=== PATIENT | female | born 1960 | race Caucasian/White ===

== ENCOUNTER → 2016-12-14 | Outpatient (CLI) | payer OTHER ==
[2016-12-14 19:38] LABS: URIC ACID 7.1 mg/dL (2.6-7.2)
== END ==
LOC: LAB.WCP 08:00
PROVIDERS: ATTEND Family Medicine
DX: M06.4 Inflammatory polyarthropathy (principal)
CPT/HCPCS: 36415; 84550; 85651; 86140; 86430

== ENCOUNTER 2017-05-14 09:59 | Outpatient (CLI) | payer MEDICAID ==
--- NOTE | 2017-05-15 16:07 | Mammography Report ---
DIGITAL SCREENING MAMMOGRAM: 05/14/2017 CLINICAL INDICATION: A 56-year-old with history of bilateral implants, for screening. TECHNIQUE: Routine CC and MLO projections were obtained of the breasts. Bilateral implant-displaced views. COMPARISON: Report of previous mammogram of 07/10/2004. Previous films have been purged. FINDINGS: The breasts demonstrate scattered fibroglandular densities bilaterally. Bilateral subglandular saline implants are present. No suspicious masses, clustered microcalcifications, or regions of architectural distortion are identified. IMPRESSION: BENIGN FINDINGS. RECOMMENDATION: ROUTINE ANNUAL SCREENING UNLESS OTHERWISE CLINICALLY INDICATED. BIRADS CATEGORY 2-BENIGN FINDINGS. STANDARD QUALIFYING STATEMENTS: 1. This examination was reviewed with the aid of Computer-Aided Detection (CAD). 2. A negative or benign imaging report should not delay biopsy if clinically suspicious findings are present. Consider surgical consultation if warranted. More than 5% of cancers are not identified by imaging. 3. Dense breasts may obscure an underlying neoplasm. TD: 05/15/2017 16:06
== END 2017-05-14 10:00 | disposition home or self-care (01) ==
LOC: DI.N 09:59
PROVIDERS: ATTEND Family Medicine
DX: Z12.31 Encounter for screening mammogram for malignant neoplasm of breast (principal); Z98.82 Breast implant status
CPT/HCPCS: 77067

== ENCOUNTER 2017-05-21 17:17 | Outpatient (CLI) | payer MEDICAID | END 2017-05-21 17:18 | disposition home or self-care (01) | LOC: LAB.R 17:17 | PROVIDERS: ATTEND Obstetrics & Gynecology | DX: N89.8 Other specified noninflammatory disorders of vagina (principal) | CPT/HCPCS: 87480; 87510; 87660 ==

== ENCOUNTER 2017-07-26 11:42 | Outpatient (CLI) | payer MEDICAID | END 2017-07-26 11:43 | disposition home or self-care (01) | LOC: LAB 11:42 | PROVIDERS: ATTEND Orthopaedic Surgery | DX: Z01.812 Encounter for preprocedural laboratory examination (principal); M18.12 Unilateral primary osteoarthritis of first carpometacarpal joint, left hand | CPT/HCPCS: 87640 ==

== ENCOUNTER 2017-07-30 06:15 | Day surgery (SDC) | payer MEDICAID ==
[2017-07-30] MEDS ORDERED: ACETAMINOPHEN 1,000 MG/100 ML 100 ML IV ONE (06:34)
[2017-07-30] MEDS ORDERED: CLINDAMYCIN 600 MG/50 ML 50 ML IV ONE (06:35)
[2017-07-30] MEDS ORDERED: LACTATED RINGERS 1,000 ML IV ONE ×2 (06:54→08:27)
[2017-07-30] MEDS ORDERED: FAMOTIDINE 20 MG/50 ML 50 ML IV ONE (07:25)
[2017-07-30] MEDS ORDERED: BUPIVACAINE 0.25% PF 30 ML VIAL ONE (07:33)
[2017-07-30] MEDS ORDERED: BUPIVACAINE 0.25%-EPI 1:200000 PF 30 ML VIAL ONE (07:46)
[2017-07-30] MEDS ORDERED: BUPIVACAINE 0.25%-EPI 1:200000 PF 30 ML VIAL SUBQ ONE ×2 (08:16)
[2017-07-30] MEDS ORDERED: LIDOCAINE-MPF 2% 5 ML VIAL IM ONE (08:40)
[2017-07-30] MEDS ORDERED: MIDAZOLAM 2 MG/2 ML VIAL IVP ONE (08:40)
[2017-07-30] MEDS ORDERED: fentaNYL 100 MCG/2 ML VIAL IVP ONE (08:40)
[2017-07-30] MEDS ORDERED: PROPOFOL 200 MG/20 ML VIAL IVP ONE (08:40)
[2017-07-30] MEDS ORDERED: DEXAMETHASONE 4 MG/ML VIAL IVP ONE (08:40)
[2017-07-30] MEDS ORDERED: ONDANSETRON 4 MG/2 ML VIAL IVP ONE (08:40)
[2017-07-30 10:38] VITALS: BP 119/54
--- NOTE | 2017-07-30 16:10 | OPERATIVE REPORT ---
DATE OF SERVICE: 07/30/2017 Physician: Chino García MD PREOPERATIVE DIAGNOSIS: Right thumb first carpometacarpal joint arthritis with loose bodies. POSTOPERATIVE DIAGNOSIS: Right thumb first carpometacarpal joint arthritis with loose bodies. PROCEDURE PERFORMED: Right thumb first carpometacarpal joint arthroplasty with trapezium excision. SURGEON: Chino García MD ANESTHESIA: General. INDICATIONS FOR SURGERY: Patient is a 56-year-old female with progressive right thumb first carpometacarpal joint arthritis who has constant pain, grinding and subluxation and enlargement of the joint. She desires care for this and has failed nonoperative treatment. FINDINGS AT SURGERY: The patient's joint was indeed laterally subluxated and the base of the first metacarpal was devoid of cartilage on 50% of its articular surface. There were 3 loose bodies, 1 large and 2 small in the joint area. DESCRIPTION OF OPERATIVE PROCEDURE: The patient was taken to the operating room and the patient desired general anesthesia and her surgical site had been marked. She was given general anesthesia and then her right upper extremity was sterilely prepped and draped in standard fashion. Tourniquet was placed on the upper arm. Surgical site was then infiltrated with 0.25% Marcaine with epinephrine. Once the sterile prep and drape were completed, the surgical pen was used to serina out the curved incision over the base of the thumb and surgery progressed with incision through skin only and a careful dissection down spreading through extensor tendons to the base of the first metacarpal. Retractors were positioned and incision was made into the capsule in a longitudinal fashion extending from the base of the first metacarpal down almost to the radial styloid, preserving the dorsal leash of vessels and exposing the first carpometacarpal joint articulation. Soft tissue was reflected from this articulation and from the carpus to expose the trapezium, which was sectioned in 4 pieces and removed, preserving the capsule. The base of the thumb was drilled through from the dorsal surface of the first metacarpal into the central area of the base of the bone and this was sufficient in size to receive the flexor carpi radialis tendon, which was harvested proximal to the wrist, whipstitched and drawn through this hole in the bone and once passed through the bone was reduced into proper alignment and pentecostalism of length and a 0.045 K-wire was driven from the first metacarpal into the carpus to support this. The tendon was then placed under traction and anchoring sutures were placed into the base of the metacarpal and tendon as well as a bone wedge placed into the remaining gap in the hole that had been drilled. This essentially wedge that the tendon in place. The area was flushed of bone debris and inspected. The pin was bent and cut outside the skin and sterile dressings were applied, after which a meticulous closure was made with the tourniquet deflated. There was some minor venous bleeding controlled with cautery. The capsule was closed with Ti-Cron suture, interrupted, the subcutaneous tissue with Vicryl suture and the skin with Monocryl running 4-0. A repeat infiltration was performed into the surgery site, and after this, the sterile dressings were applied and the patient was placed into a thumb spica cast, which was immediately univalved after hardening. The patient was taken to recovery room in stable condition. ESTIMATED BLOOD LOSS: Minimal. COMPLICATIONS: None. COUNTS: Sponge, needle counts were correct. TD: 07/30/2017 10:33
== END 2017-07-30 06:16 | disposition home or self-care (01) ==
LOC: SDS 06:15
PROVIDERS: ATTEND Orthopaedic Surgery
PROC: 0RUS07Z Supplement Right Carpometacarpal Joint with Autologous Tissue Substitute, Open Approach (ICD-10-PCS; principal; 2017-07-30 07:30)
DX: M18.11 Unilateral primary osteoarthritis of first carpometacarpal joint, right hand (principal); M24.08 Loose body, other site; Z87.891 Personal history of nicotine dependence
CPT/HCPCS: 25447; 26480; C1713; J0131; J7120

== ENCOUNTER 2017-09-04 19:17 | Emergency (ER) | payer MEDICAID ==
[2017-09-04 19:50] VITALS: BP 128/70
--- NOTE | 2017-09-04 20:43 | ED Physician Documentation ---
History of Present Illness - Stated complaint Stated Complaint: LT HAND KNUCKLE LAC - Chief complaint Chief Complaint: Laceration - History obtained from History obtained from: Patient - Additonal information Additional information: 56-year-old female presents the emergency department for evaluation of a laceration which occurred just prior to arrival.No reports of injury to her head or torso. Bleeding currently is under control. The patient reports an up- to-date tetanus shot.Symptoms are described as mild. No other associated symptoms Review of Systems Constitutional: denies: Fatigue Cardiac: denies: Palpitations Skin: reports: Laceration (s) Musculoskeletal: denies: Extremity pain, Joint pain Neurologic: denies: Syncope Immunocompromised: denies: Chemotherapy PD PAST MEDICAL HISTORY - Past Medical History Past Medical History: Yes Cardiovascular: Hypertension, High cholesterol Respiratory: Asthma Endocrine/Autoimmune: Type 2 diabetes GI: GERD, Hiatal hernia, Other B2B SALES REPRESENTATIVE: None : Frequency Psych: Anxiety Musculoskeletal: Osteoarthritis Derm: None - Past Surgical History Past Surgical History: Yes General: Gastric surgery /B2B SALES REPRESENTATIVE: Hysterectomy, Other - Present Medications Home Medications: Ambulatory Orders Medication Instructions Recorded Confirmed Ascorbic Acid [Vitamin C] 1,000 mg PO DAILY 06/11/17 07/26/17 Biotin 10,000 units PO DAILY 06/11/17 07/26/17 Calcium Carbonate [Calcium] 600 mg PO DAILY 06/11/17 07/26/17 Cholecalciferol (Vitamin D3) 1,000 units PO DAILY 06/11/17 07/26/17 [Vitamin D3] Estradiol 0.5 mg PO DAILY 06/11/17 07/30/17 Fluticasone [Flonase] 1 sprays MARTA BID PRN 06/11/17 07/30/17 Glucosamine Sulfate Dipot Chlr 1,000 mg PO DAILY 06/11/17 07/30/17 [Glucosamine Sulfate] L-Lysine 1,000 mg PO DAILY 06/11/17 07/30/17 Lactobacillus Acidophilus/Fos 1 cap PO DAILY 06/11/17 07/30/17 [Acidophilus Probiotic Tablet] Lisinopril/Hydrochlorothiazide 10 - 12.5 mg PO DAILY 06/11/17 07/30/17 [Lisinopril-Hctz 10-12.5 mg Tab] [place]-3/Dha/Epa/Fish Oil [Fish Oil 1 cap PO DAILY 06/11/17 07/30/17 1,000 mg Softgel] Omeprazole 3 - 4 each PO ONCE PRN 06/11/17 07/30/17 Potassium Gluconate 1 tab PO DAILY 06/11/17 07/30/17 Sertraline [Zoloft] 25 mg PO DAILY 06/11/17 07/30/17 Sertraline [Zoloft] 50 mg PO DAILY 06/11/17 07/30/17 Trazodone HCl 100 mg PO DAILY 06/11/17 07/30/17 Valacyclovir HCl [Valacyclovir] 500 mg PO DAILY PRN 06/11/17 07/30/17 Albuterol Sulf [Ventolin Hfa 1 - 2 puffs INH Q4HR PRN 07/26/17 07/30/17 Inhaler] - Allergies Allergies/Adverse Reactions: Allergies Allergy/AdvReac Type Severity Reaction Status Date / Time cefazolin sodium * Allergy Anaphylaxis Verified 09/04/17 19:43 [From [facility]] latex Allergy Rash Verified 09/04/17 19:43 NSAIDS (Non-Steroidal AdvReac GI upset Verified 09/04/17 19:43 Anti-Inflamma Opioids-Meperidine and AdvReac Itching Verified 09/04/17 19:43 Related - Social History Does the pt smoke?: Yes Smoking Status: Current every day smoker Does the pt drink ETOH?: Yes Does the pt have substance abuse?: No - Immunizations Immunizations are current?: Yes - POLST Patient has POLST: Yes PD ED PE NORMAL - General General: Alert and oriented X 3, No acute distress - HEENT HEENT: Atraumatic, PERRL - Derm Derm: Other (1 cm laceration to the left ring finger which is a and a Curve pattern. The bleeding currently is under control. No active bleeding or foreign body. No evidence of ligamentous or tendon injury.) - Extremities Extremities: No deformity - Neuro Neuro: Alert and oriented X 3 - Psych Psych: Normal mood Results - Vitals Vitals: Vital Signs - 24 hr 09/04/17 19:21 Temperature 36.4 C L Heart Rate 89 Respiratory 20 Rate Blood Pressure 128/70 O2 Saturation 100 Oxygen O2 Source Room air Procedures - Laceration (location) Upper extremity left Wound type: Curved Neurovascular status: Sensory intact, Motor intact, Vascular intact Tendon involvement: No: Tendon intact, Tendon Injury Anesthesia: Lidocaine 2% Wound Preparation: Betadine, Irrigated copiously NS. No: FB identified Deep layer closure: # sutures - enter number (3) Skin layer closure: Nylon Other: Patient tolerated well Complexity: Simple PD MEDICAL DECISION MAKING - ED course ED course: The patient's wound was closed, there is no evidence of ligamentous or tendon injury. The patient is up-to-date on her tetanus and appears appropriate for discharge home in ongoing outpatient management. I discussed with her warning signs for infection and advised returning to the emergency department for any worsening or any concerns. - Sepsis Event Vital Signs: Vital Signs - 24 hr 09/04/17 19:21 Temperature 36.4 C L Heart Rate 89 Respiratory 20 Rate Blood Pressure 128/70 O2 Saturation 100 Oxygen O2 Source Room air Departure - Departure Disposition: 01 Home, Self Care Clinical Impression: Laceration Condition: Good Instructions: ED Laceration All Follow-Up: Kike Booth MD [Primary Care Provider] - Within 1 week Comments: Please have your sutures removed in 7 days. Please return to the emergency department for worsening symptoms or any concerns Discharge Date/Time: 09/04/17 20:45
[2017-09-04] MEDS ORDERED: BACITRACIN OINT TOP ONE (20:52)
== END 2017-09-04 20:45 | disposition home or self-care (01) ==
LOC: ED 19:17
DX: S61.215A Laceration without foreign body of left ring finger without damage to nail, initial encounter (principal); W45.8XXA Other foreign body or object entering through skin, initial encounter; I10 Essential (primary) hypertension; E78.00 Pure hypercholesterolemia, unspecified; E11.9 Type 2 diabetes mellitus without complications
CPT/HCPCS: 12001; 99282; 99283; A9270

== ENCOUNTER 2017-10-01 06:08 | Day surgery (SDC) | payer MEDICAID ==
[2017-10-01] MEDS ORDERED: ACETAMINOPHEN 1,000 MG/100 ML 100 ML IV ONE (06:25)
[2017-10-01] MEDS ORDERED: CLINDAMYCIN 600 MG/50 ML 50 ML IV ONE (06:25)
--- NOTE | 2017-10-01 06:53 | ANESTHESIA ---
Pre-Anesthesia VS, & Labs - Diagnosis left thumb cmc arthritis - Procedure left carpal metacarpal arthroplasty Vital Signs: Temp Pulse Resp BP Pulse Ox 36.2 C L 16 104/62 97 10/01/17 06:38 10/01/17 06:38 10/01/17 06:38 10/01/17 06:38 Height 5 ft 4 in Weight (kg) 71.9 kg Body Mass Index 28.3 - NPO Other (water 0300 food 2200) - Is Patient ?: Not Applicable - Lab Results Lab results reviewed: Yes Home Medications and Allergies Home Medications: Ambulatory Orders Medication Instructions Recorded Confirmed Ascorbic Acid [Vitamin C] 1,000 mg PO DAILY 06/11/17 07/26/17 Biotin 10,000 units PO DAILY 06/11/17 07/26/17 Calcium Carbonate [Calcium] 600 mg PO DAILY 06/11/17 07/26/17 Cholecalciferol (Vitamin D3) 1,000 units PO DAILY 06/11/17 07/26/17 [Vitamin D3] Estradiol 0.5 mg PO DAILY 06/11/17 07/30/17 Fluticasone [Flonase] 1 sprays MARTA BID PRN 06/11/17 07/30/17 Glucosamine Sulfate Dipot Chlr 1,000 mg PO DAILY 06/11/17 07/30/17 [Glucosamine Sulfate] L-Lysine 1,000 mg PO DAILY 06/11/17 07/30/17 Lactobacillus Acidophilus/Fos 1 cap PO DAILY 06/11/17 07/30/17 [Acidophilus Probiotic Tablet] Lisinopril/Hydrochlorothiazide 10 - 12.5 mg PO DAILY 06/11/17 07/30/17 [Lisinopril-Hctz 10-12.5 mg Tab] [place]-3/Dha/Epa/Fish Oil [Fish Oil 1 cap PO DAILY 06/11/17 07/30/17 1,000 mg Softgel] Omeprazole 3 - 4 each PO ONCE PRN 06/11/17 07/30/17 Potassium Gluconate 1 tab PO DAILY 06/11/17 07/30/17 Sertraline [Zoloft] 25 mg PO DAILY 06/11/17 07/30/17 Sertraline [Zoloft] 50 mg PO DAILY 06/11/17 07/30/17 Trazodone HCl 100 mg PO DAILY 06/11/17 07/30/17 Valacyclovir HCl [Valacyclovir] 500 mg PO DAILY PRN 06/11/17 07/30/17 Albuterol Sulf [Ventolin Hfa 1 - 2 puffs INH Q4HR PRN 07/26/17 07/30/17 Inhaler] Allergies/Adverse Reactions: Allergies Allergy/AdvReac Type Severity Reaction Status Date / Time cefazolin sodium * Allergy Anaphylaxis Verified 09/30/17 09:43 [From Ancef] latex Allergy Rash Verified 09/30/17 09:43 acetaminophen [From Percocet] AdvReac Nausea Verified 09/30/17 09:43 NSAIDS (Non-Steroidal AdvReac GI upset Verified 09/30/17 09:43 Anti-Inflamma Opioids-Meperidine and AdvReac Itching Verified 09/30/17 09:43 Related oxycodone [From Percocet] AdvReac Nausea Verified 09/30/17 09:43 Anes History & Medical History - Anesthetic History Anesthesia Complications: reports: Post-Operative Nausea/Vomiting - Medical History Cardiovascular: reports: Hypertension, High cholesterol Pulmonary: reports: Asthma Gastrointestinal: reports: GERD, Hiatal hernia, Other Urinary: reports: Frequency Musculoskeletal: reports: Osteoarthritis Endocrine/Autoimmune: reports: Type 2 diabetes Skin: reports: None Smoking Status: Current every day smoker Psychosocial: reports: Depression, Anxiety, Cannabis - Surgical History General: Gastric surgery, Hiatal hernia repair Urologic: Bladder surgery Gynecologic: Hysterectomy, Other Orthopedic: Other (right cmc arthroplasty) Exam General: Alert, Oriented x3, No acute distress Dental: Other (crown) Mouth Openin Fingerbreadth Mallampati classification: II Thyromental Distance: greater than 6 cm Respiratory: Lungs clear Cardiovascular: Regular rate, No murmurs Plan Anesthesia Type: General Consent for Procedure(s) Verified and Reviewed: Yes Code Status: Attempt Resuscitation ASA classification: 2-Mild systemic disease Is this case an emergency?: No
[2017-10-01] MEDS ORDERED: BUPIVACAINE 0.25% PF 30 ML VIAL ONE (06:56)
[2017-10-01] MEDS ORDERED: LACTATED RINGERS 1,000 ML IV ONE (07:00)
[2017-10-01] MEDS ORDERED: SCOPOLAMINE PATCH TOP ONE (07:16)
[2017-10-01] MEDS ORDERED: BUPIVACAINE 0.25% PF 30 ML VIAL SUBQ ONE ×2 (08:07)
[2017-10-01] MEDS ORDERED: SUCCINYLCHOLINE 200 MG/10 ML VIAL IVP ONE (09:14)
[2017-10-01] MEDS ORDERED: MIDAZOLAM 2 MG/2 ML VIAL IVP ONE (09:14)
[2017-10-01] MEDS ORDERED: DEXAMETHASONE 4 MG/ML VIAL IVP ONE (09:14)
[2017-10-01] MEDS ORDERED: PROPOFOL 200 MG/20 ML VIAL IVP ONE (09:14)
[2017-10-01] MEDS ORDERED: ONDANSETRON 4 MG/2 ML VIAL IVP ONE (09:14)
[2017-10-01] MEDS ORDERED: fentaNYL 100 MCG/2 ML VIAL IVP ONE (09:14)
[2017-10-01] MEDS: HYDROmorphone 1 MG/ML CARPUJECT ONE ×4 (09:23→09:50)
[2017-10-01] MEDS ORDERED: oxyCOD/ACETAMIN 5 MG/325 MG TABLET PO ONE (10:24)
--- NOTE | 2017-10-01 10:42 | OPERATIVE REPORT ---
DATE OF SERVICE: 10/01/2017 Physician: Chino García MD PREOPERATIVE DIAGNOSIS: Left thumb first carpometacarpal joint arthritis. POSTOPERATIVE DIAGNOSIS: Left thumb first carpometacarpal joint arthritis. PROCEDURE PERFORMED: Suspension arthroplasty of the left first carpometacarpal joint with trapeziect mckenna. SURGEON: Chino García MD ANESTHESIA: General. INDICATIONS FOR SURGERY: The patient is a 56-year-old female who has bilateral severe carpometacarpa l joint arthritis of her thumbs, who has previously undergone a successful right thumb surgery with r estoration of thumb function and resolution of pain. She was found on the left thumb to have loose b odies and lateral subluxation of the base of her thumb, and constant thumb pain not responsive to non operative measures. She desires carpometacarpal arthroplasty. FINDINGS AT SURGERY: The patient's joint on exposure showed a small effusion, loose bodies, one larg e and two small. Lateral subluxation of the joint. DESCRIPTION OF OPERATIVE PROCEDURE: The patient was taken to the operating room and was given a gene ral anesthetic. A tourniquet was placed on her left upper arm, and her forearm and hand were sterile ly prepped and draped in standard fashion. After a surgical timeout, the patient's thumb was approac hed through a curved incision of the base of the thumb, dissected down carefully to the dorsum of the thumb, and retracting extensor tendons to each side, and releasing the first extensor compartment fo r better visualization. The thumb base was exposed with a longitudinal capsular incision with reflec tiffanie flaps, exposing the underlying carpometacarpal joint and the trapezium. Soft tissues were reflec tiffanie to allow excision of the trapezium and removal of bone fragments. The base of the thumb was then drilled through with a receiving drill hole, and the flexor carpi radialis was harvested from the di stal radial wrist, and a whipstitch placed in it, and was drawn through this hole in the base of the first metacarpal. With that joint reduced and tension on the ligament suspension, a 0.062 K-wire was driven from the base of the first metacarpal into the carpus. The bone fragments were packed back a round the tendon, securing it also with suture. The area was flushed and irrigated. A [employer] ball was placed on the tip of the cut K-wire, protectin g the end of the K-wire. The wound was irrigated thoroughly. There was minimal bleeding on tourniqu et removal. Closure was then undertaken, repairing capsule carefully over the void of the resected t rapezium. The subcutaneous tissue was closed with Vicryl, and the skin with interrupted Prolene. St erile dressings were applied. The patient was then fitted with a very well-padded thumb spica cast, which was then univalved on the dorsum, and spread open for swelling control. The patient was taken to recovery room in stable cond ition. The estimated blood loss for the procedure was less than 20 mL. There were no complications. Sponge and needle counts correct. TD: 10/01/2017 10:22
[2017-10-01 11:04] VITALS: BP 107/65
== END 2017-10-01 06:09 | disposition home or self-care (01) ==
LOC: SDS 06:08
PROVIDERS: ATTEND Orthopaedic Surgery
PROC: 0RQT0ZZ Repair Left Carpometacarpal Joint, Open Approach (ICD-10-PCS; 2017-10-01)
PROC: 0RQT0ZZ Repair Left Carpometacarpal Joint, Open Approach (ICD-10-PCS; principal; 2017-10-01 07:30)
DX: M18.12 Unilateral primary osteoarthritis of first carpometacarpal joint, left hand (principal); E11.9 Type 2 diabetes mellitus without complications
CPT/HCPCS: 20924; 25447; A9270; C1713; J0131; J0330; J1170; J3490; J7120

== ENCOUNTER → 2018-10-15 | Outpatient (CLI) | payer MEDICAID | LOC: LAB.R 08:00 | PROVIDERS: ATTEND Physician Assistant Medical | DX: Z51.89 Encounter for other specified aftercare (principal) | CPT/HCPCS: 87070; 87205 ==

== ENCOUNTER 2018-11-25 08:00 | Outpatient (CLI) | payer MEDICAID | END 2018-11-25 23:59 | disposition home or self-care (01) | LOC: LAB.R 08:00 | PROVIDERS: ATTEND Physician Assistant | DX: J02.9 Acute pharyngitis, unspecified (principal) | CPT/HCPCS: 87070 ==

== ENCOUNTER 2019-03-06 07:00 | Outpatient (CLI) | payer MEDICAID | END 2019-03-06 23:59 | disposition home or self-care (01) | LOC: LAB.R 07:00 | PROVIDERS: ATTEND Nurse Practitioner Family | DX: N39.0 Urinary tract infection, site not specified (principal) | CPT/HCPCS: 87077; 87086; 87181 ==

== ENCOUNTER 2019-11-23 14:19 | Outpatient (CLI) | payer MEDICAID ==
--- NOTE | 2019-11-24 08:44 | Mammography Report ---
BILATERAL DIGITAL SCREENING MAMMOGRAM 3D/2D WITH AUGMENTATION: 11/23/2019 CLINICAL: Routine screening. Comparison is made to exam dated: 05/09/2017 mammogram - [facility]. The tissue of both breasts is predominantly fatty. Bilateral breast implants are stable. No significant masses, calcifications, or other findings are seen in either breast. There has been no significant interval change. IMPRESSION: NEGATIVE There is no mammographic evidence of malignancy. A 1 year screening mammogram is recommended. This exam was interpreted at Station ID: [id number]. NOTE: For mammograms, a report in lay terms will be sent to the patient. Approximately 15% of breast malignancies will not be visualized mammographically. In the management of a palpable breast mass, a negative mammogram must not discourage biopsy of a clinically suspicious lesion. Electronically Signed By: Cheyanne lopez/anaya:11/23/2019 16:50:35 ACR BI-RADS Category 1: Negative 3341F PARENCHYMAL PATTERN: (F) - The breast(s) demonstrate(s) diffuse fatty replacement. BI-RADS CATEGORY: (1) - 1 RECOMMENDATION: (ANNUAL) - Recommend routine annual screening mammography. [id number] 1 year screening LATERALITY: (B)
== END 2019-11-23 14:20 | disposition home or self-care (01) ==
LOC: DI.N 14:19
DX: Z12.31 Encounter for screening mammogram for malignant neoplasm of breast (principal); Z98.82 Breast implant status
CPT/HCPCS: 77063; 77067

== ENCOUNTER 2020-05-03 10:40 | Outpatient (CLI) | payer MEDICAID ==
--- NOTE | 2020-05-05 08:57 | Ultrasound Report ---
LIMITED ULTRASOUND OF RIGHT BREAST: 05/03/2020 CLINICAL: Palpable right breast lump by patient. Comparison is made to exams dated: 05/03/2020 mammogram, 11/23/2019 mammogram, and 05/09/2017 mammogram - [facility]. Ultrasound of the right breast 1 o'clock region was performed. No significant abnormalities were seen sonographically in the right breast. Specifically, no sonogra phic finding to correspond to the patient's palpable abnormality. IMPRESSION: NEGATIVE There is no sonographic correlate to the patient's palpable abnormality and no evidence of malignancy . A 1 year screening mammogram is recommended. Findings and recommendations were conveyed to the patient at time of exam. This exam was interpreted at Station ID: [id number]. Electronically Signed By: Pam amador/:05/03/2020 12:36:43 Ultrasound BI-RADS: 1 Negative BI-RADS CATEGORY: (1) - 1 RECOMMENDATION: (ANNUAL) - Recommend routine annual screening mammography. [id number] 1 year screening LATERALITY: (B)
--- NOTE | 2020-05-05 08:57 | Mammography Report ---
BILATERAL DIGITAL DIAGNOSTIC MAMMOGRAM 3D/2D: 05/03/2020 CLINICAL: Palpable right breast lump. Comparison is made to exams dated: 11/23/2019 mammogram and 05/09/2017 mammogram - [facility]. The tissue of both breasts is predominantly fatty. Bilateral prepectoral saline implants are present. No significant masses, calcifications, or other findings are seen in either breast. Specifically, no finding to correspond to the patient's palpable abnormality. IMPRESSION: INCOMPLETE: NEEDS ADDITIONAL IMAGING EVALUATION There is no abnormality seen in the right breast to correspond with the palpable abnormality at 2 o'c lock. Bilateral implants are intact and stable. Ultrasound is recommended for full evaluation of this area. This was performed immediately following this exam. This exam was interpreted at Station ID: [id number]. NOTE: For mammograms, a report in lay terms will be sent to the patient. Approximately 15% of breast malignancies will not be visualized mammographically. In the management of a palpable breast mass, a negative mammogram must not discourage biopsy of a clinically suspicious lesion. Electronically Signed By: Pam amaodr/:05/03/2020 12:32:31 ACR BI-RADS Category 0: Incomplete 3340F PARENCHYMAL PATTERN: (F) - The breast(s) demonstrate(s) diffuse fatty replacement. BI-RADS CATEGORY: (0) - 0 Ultrasound [id number] Immediate follow-up LATERALITY: (B)
== END 2020-05-03 10:41 | disposition home or self-care (01) ==
LOC: DI 10:40
PROVIDERS: ATTEND Family Medicine
DX: N63.12 Unspecified lump in the right breast, upper inner quadrant (principal); Z98.82 Breast implant status

== ENCOUNTER 2020-05-06 08:00 | Outpatient (CLI) | payer MEDICAID | END 2020-05-06 23:59 | disposition home or self-care (01) | LOC: LAB.R 08:00 | PROVIDERS: ATTEND Physician Assistant Medical | DX: N30.00 Acute cystitis without hematuria (principal) | CPT/HCPCS: 87086 ==

== ENCOUNTER 2020-06-30 08:00 | Outpatient (CLI) | payer MEDICAID ==
[2020-06-30 17:47] LABS: BASOPHILS % (AUTO) 0.5 %; EOSINOPHILS # (AUTO) 0.2 10^3/uL (0.0-0.7); EOSINOPHILS % (AUTO) 2.7 %; HCT - HEMATOCRIT 42.5 % (37.0-47.0); HGB - HEMOGLOBIN 14.5 g/dL (12.0-16.0); LYMPHOCYTES # (AUTO) 2.7 10^3/uL (1.5-3.5); LYMPHOCYTES % (AUTO) 34.4 %; MEAN CORPUSCULAR HEMOGLOBIN 33.6 pg (27.0-31.0); MEAN CORPUSCULAR HGB CONC 34.1 g/dL (32.0-36.0); MEAN CORPUSCULAR VOLUME 98.4 fL (81.0-99.0); MEAN PLATELET VOLUME 10.9 fL (7.9-10.8); MONOCYTES # (AUTO) 0.6 10^3/uL (0.0-1.0); MONOCYTES % (AUTO) 7.9 %; NEUTROPHILS # (AUTO) 4.2 10^3/uL (1.5-6.6); PLT - PLATELET COUNT 305 10^3/uL (130-450); RED BLOOD COUNT 4.32 10^6/uL (4.20-5.40); RED CELL DISTRIBUTION WIDTH 11.9 % (12.0-15.0); WHITE BLOOD COUNT 7.7 x10^3/uL (4.8-10.8)
[2020-06-30 18:01] LABS: ALBUMIN 4.4 g/dL (3.2-5.5); ALBUMIN/GLOBULIN RATIO 1.6 (1.0-2.2); CALCIUM 9.1 mg/dL (8.5-10.3); POTASSIUM 4.1 mmol/L (3.5-5.0); TOTAL PROTEIN 7.1 g/dL (6.7-8.2)
[2020-06-30 18:17] LABS: THYROID STIMULATING HORMONE 1.04 uIU/mL (0.34-5.60)
== END 2020-06-30 23:59 | disposition home or self-care (01) ==
LOC: LAB.N 08:00
PROVIDERS: ATTEND Nurse Practitioner
DX: M62.81 Muscle weakness (generalized) (principal)
CPT/HCPCS: 36415; 80053; 84443; 85025

== ENCOUNTER 2020-11-24 08:00 | Outpatient (CLI) | payer MEDICAID ==
[2020-11-24 17:59] LABS: BASOPHILS % (AUTO) 0.7 %; EOSINOPHILS # (AUTO) 0.2 10^3/uL (0.0-0.7); EOSINOPHILS % (AUTO) 3.7 %; HCT - HEMATOCRIT 42.3 % (37.0-47.0); HGB - HEMOGLOBIN 13.9 g/dL (12.0-16.0); LYMPHOCYTES # (AUTO) 1.5 10^3/uL (1.5-3.5); LYMPHOCYTES % (AUTO) 27.2 %; MEAN CORPUSCULAR HEMOGLOBIN 33.4 pg (27.0-31.0); MEAN CORPUSCULAR HGB CONC 32.9 g/dL (32.0-36.0); MEAN CORPUSCULAR VOLUME 101.7 fL (81.0-99.0); MEAN PLATELET VOLUME 11.4 fL (7.9-10.8); MONOCYTES # (AUTO) 0.6 10^3/uL (0.0-1.0); PLT - PLATELET COUNT 223 10^3/uL (130-450); RED BLOOD COUNT 4.16 10^6/uL (4.20-5.40); RED CELL DISTRIBUTION WIDTH 11.8 % (12.0-15.0); WHITE BLOOD COUNT 5.3 x10^3/uL (4.8-10.8)
[2020-11-24 18:26] LABS: THYROID STIMULATING HORMONE 1.3 uIU/mL (0.34-5.60)
[2020-11-24 18:27] LABS: ALBUMIN 4.4 g/dL (3.2-5.5); ALBUMIN/GLOBULIN RATIO 1.7 (1.0-2.2); ALKALINE PHOSPHATASE 46 IU/L (42-121); ALT ALANINE AMINOTRANSFERASE 17 IU/L (10-60); AST ASPARTATE AMINOTRANSFERASE 20 IU/L (10-42); BILIRUBIN,TOTAL 1.1 mg/dL (0.2-1.0); BUN - BLOOD UREA NITROGEN 17 mg/dL (6-20); CALCIUM 9.1 mg/dL (8.5-10.3); CARBON DIOXIDE - CO2 27 mmol/L (21-32); CHLORIDE 99 mmol/L (101-111); CHOL/HDL RATIO 3.4 (<4.4); CHOLESTEROL 239 mg/dL; GFR - MDRD 56 (>89); GLUCOSE 92 mg/dL (70-100); HDL CHOLESTEROL 70 mg/dL; LDL CHOLESTEROL,CALCULATED 152 mg/dL; LDL/HDL RATIO 2.2 (<4.4); POTASSIUM 3.9 mmol/L (3.5-5.0); SODIUM 136 mmol/L (135-145); TRIGLYCERIDES 87 mg/dL; VLDL CHOLESTEROL 17 mg/dL
[2020-11-24 18:27] LABS: CREATININE,URINE 114.4 mg/dL
[2020-11-24 18:59] LABS: MICROALBUMIN,URINE < 0.2 mg/dL (0-300.0)
[2020-11-24 20:38] LABS: ESTIMATED AVERAGE GLUCOSE 100 mg/dL (70-100); HEMOGLOBIN A1c% 5.1 % (4.27-6.07)
== END 2020-11-24 23:59 | disposition home or self-care (01) ==
LOC: LAB.WCP 08:00
PROVIDERS: ATTEND Family Medicine
DX: E11.9 Type 2 diabetes mellitus without complications (principal); R35.0 Frequency of micturition
CPT/HCPCS: 36415; 80053; 80061; 82043; 82570; 83036; 83721; 84443; 85025; 87086

== ENCOUNTER 2020-12-06 11:27 | Outpatient (CLI) | payer MEDICAID ==
--- NOTE | 2020-12-06 13:09 | XRAY Report ---
PROCEDURE: Knee 3 View RT INDICATIONS: R KNEE PX TECHNIQUE: 3 views of the right knee(s) were acquired. COMPARISON: None. FINDINGS: Bones: No acute fractures or dislocations. Tricompartmental degenerative changes of the right knee. Mild lateral femorotibial compartment joint space narrowing with weightbearing. No suspicious bony l esions. Small marginal osteophyte formation. Soft tissues: Small suprapatellar joint effusion. No suspicious soft tissue calcifications. IMPRESSION: Right knee without acute fracture or dislocation. Tricompartmental osteoarthrosis of the right knee. Small suprapatellar joint effusion. Reviewed by: Diogo Lyons MD on 12/06/2020 1:08 PM PDT Approved by: Diogo Lyons MD on 12/06/2020 1:08 PM PDT Station ID: [id number]
== END 2020-12-06 23:59 ==
LOC: DI.N 11:27
PROVIDERS: ATTEND Family Medicine
DX: M17.11 Unilateral primary osteoarthritis, right knee (principal); M25.461 Effusion, right knee

== ENCOUNTER 2021-01-02 10:15 | Outpatient (CLI) | payer MEDICAID ==
--- NOTE | 2021-01-02 11:06 | XRAY Report ---
PROCEDURE: Knee 4 View RT INDICATIONS: RIGHT KNEE PAIN TECHNIQUE: 4 views of the right knee(s) were acquired. AP weightbearing view of both knees. COMPARISON: December 06, 2020. FINDINGS: BONES/JOINT: No acute, displaced fracture or dislocation. Small suprapatellar joint effusion. Mild os teophytosis of the patellofemoral compartment. Left lateral compartment osteophytosis. SOFT TISSUES: No significant abnormality. IMPRESSION: 1.No acute osseous abnormality. Reviewed by: Momo De Santiago MD on 01/02/2021 11:04 AM PST Approved by: Momo De Santiago MD on 01/02/2021 11:04 AM [facility] Station ID: [id number]
== END 2021-01-02 23:59 | disposition home or self-care (01) ==
LOC: DI.N 10:15
PROVIDERS: ATTEND Orthopaedic Surgery
DX: M25.561 Pain in right knee (principal)

== ENCOUNTER 2021-02-24 08:00 | Outpatient (CLI) | payer MEDICAID | END 2021-02-24 23:59 | LOC: LAB.N 08:00 | PROVIDERS: ATTEND Physician Assistant Medical | DX: R05.9 Cough, unspecified (principal); Z20.822 Contact with and (suspected) exposure to COVID-19 ==

== ENCOUNTER 2021-05-01 08:00 | Outpatient (CLI) | payer MEDICAID | END 2021-05-01 23:59 | LOC: LAB 08:00 | PROVIDERS: ATTEND Family Medicine | DX: A60.00 Herpesviral infection of urogenital system, unspecified (principal); N39.0 Urinary tract infection, site not specified | CPT/HCPCS: 87086 ==

== ENCOUNTER 2021-10-19 08:00 | Outpatient (CLI) | payer MEDICAID ==
[2021-10-19 23:30] LABS: BACTERIAL VAGINOSIS DNA POSITIVE (NEGATIVE); CANDIDA GLABRATA DNA NEGATIVE (NEGATIVE); CANDIDA GROUP DNA NEGATIVE (NEGATIVE); CANDIDA KRUSEI DNA NEGATIVE (NEGATIVE); TRICHOMONAS VAGINALIS DNA NEGATIVE (NEGATIVE)
[2021-10-20 00:25] LABS: CHLAMYDIA TRACHOMATIS DNA NEGATIVE (NEGATIVE); NEISSERIA GONORRHOEAE DNA NEGATIVE (NEGATIVE)
== END 2021-10-19 23:59 | disposition home or self-care (01) ==
LOC: LAB.N 08:00
PROVIDERS: ATTEND Registered Nurse
DX: R82.79 Other abnormal findings on microbiological examination of urine (principal); R10.2 Pelvic and perineal pain
CPT/HCPCS: 81514; 87086; 87491; 87591; 87661

== ENCOUNTER 2022-01-16 17:31 | Emergency (ER) | payer MEDICAID ==
[2022-01-16 17:58] LABS: BILIRUBIN,URINE NEGATIVE (NEGATIVE); GLUCOSE, URINE (UA) NEGATIVE (NEGATIVE); KETONES,URINE (UA) 15 mg/dL (NEGATIVE); LEUKOCYTE ESTERASE, URINE NEGATIVE (NEGATIVE); NITRITE,URINE NEGATIVE (NEGATIVE); OCCULT BLOOD,URINE NEGATIVE (NEGATIVE); PROTEIN,URINE NEGATIVE (NEGATIVE); UROBILINOGEN,URINE 0.2 (NORMAL) E.U./dL (NORMAL)
[2022-01-16 18:03] LABS: CLARITY,URINE CLEAR (CLEAR)
[2022-01-16 18:04] LABS: BASOPHILS % (AUTO) 0.3 %; EOSINOPHILS # (AUTO) 0.2 10^3/uL (0.0-0.7); EOSINOPHILS % (AUTO) 1.7 %; HCT - HEMATOCRIT 39.1 % (37.0-47.0); HGB - HEMOGLOBIN 13.3 g/dL (12.0-16.0); LYMPHOCYTES # (AUTO) 1.7 10^3/uL (1.5-3.5); LYMPHOCYTES % (AUTO) 13.3 %; MEAN CORPUSCULAR HEMOGLOBIN 32.9 pg (27.0-31.0); MEAN CORPUSCULAR VOLUME 96.8 fL (81.0-99.0); MEAN PLATELET VOLUME 9.3 fL (7.9-10.8); MONOCYTES # (AUTO) 1.3 10^3/uL (0.0-1.0); MONOCYTES % (AUTO) 10.4 %; NEUTROPHILS # (AUTO) 9.4 10^3/uL (1.5-6.6); NEUTROPHILS % (AUTO) 73.4 %; PLT - PLATELET COUNT 257 10^3/uL (130-450); RED BLOOD COUNT 4.04 10^6/uL (4.20-5.40); RED CELL DISTRIBUTION WIDTH 12.3 % (12.0-15.0); WHITE BLOOD COUNT 12.9 x10^3/uL (4.8-10.8)
[2022-01-16 18:17] LABS: ALBUMIN 4.2 g/dL (3.2-5.5); ALBUMIN/GLOBULIN RATIO 1.2 (1.0-2.2); BILIRUBIN,TOTAL 1.2 mg/dL (0.2-1.0); CALCIUM 9.4 mg/dL (8.5-10.3); POTASSIUM 3.5 mmol/L (3.5-5.0); TOTAL PROTEIN 7.8 g/dL (6.7-8.2)
--- NOTE | 2022-01-16 20:12 | ED Physician Documentation ---
PD HPI ABD PAIN - Stated complaint Stated Complaint: INTESTINE PAIN - Chief complaint Chief Complaint: Abd Pain - History obtained from History obtained from: Patient - Additional information Additional information: This is a very pleasant 61 yo F w/ pmh of several abdominal surgeries and irritable bowel symptoms who presents w/ constipation and llq pain for several days, which has been worsening. Pain comes in waves and is sharp and cramping in nature, feels like a contraction. She also feels fatigued and has decreased appetite but no vomiting. She has a headache but no other URI sx, no fever or chills. She thought she was just constipated so has tried a number of bowel regimens including enemas and digital disimpaction w/o relief. She states she normally goes 4-5 times a day every day, but hasn't now for a couple of days. She is passing gas but less than her baseline. No hx/o diverticulitis or bowel obstruction. Review of Systems Ten Systems: 10 systems reviewed and negative (except as per HPI) PD PAST MEDICAL HISTORY - Past Medical History Past Medical History: Yes Cardiovascular: Hypertension, High cholesterol Respiratory: Asthma Endocrine/Autoimmune: Type 2 diabetes GI: GERD, Hiatal hernia, Other PODODERMATOLOGIST: None : Frequency HEENT: None Psych: Depression, Anxiety, Panic attacks Musculoskeletal: Osteoarthritis Derm: None - Past Surgical History Past Surgical History: Yes General: Gastric surgery, Hiatal hernia repair Ortho: Other /PODODERMATOLOGIST: Hysterectomy, Other - Present Medications Home Medications: Ambulatory Orders Medication Instructions Recorded Confirmed Ascorbic Acid [Vitamin C] 1,000 mg PO DAILY 06/11/17 07/26/17 Biotin 10,000 units PO DAILY 06/11/17 07/26/17 Calcium Carbonate [Calcium] 600 mg PO DAILY 06/11/17 07/26/17 Cholecalciferol (Vitamin D3) 1,000 units PO DAILY 06/11/17 07/26/17 [Vitamin D3] Fluticasone [Flonase] 1 sprays MARTA BID PRN 06/11/17 07/30/17 Glucosamine Sulfate Dipot Chlr 1,000 mg PO DAILY 06/11/17 07/30/17 [Glucosamine Sulfate] L-Lysine 1,000 mg PO DAILY 06/11/17 07/30/17 Lactobacillus Acidophilus/Fos 1 cap PO DAILY 06/11/17 07/30/17 [Acidophilus Probiotic Tablet] Lisinopril/Hydrochlorothiazide 10 - 12.5 mg PO DAILY 06/11/17 07/30/17 [Lisinopril-Hctz 10-12.5 mg Tab] [place]-3/Dha/Epa/Fish Oil [Fish Oil 1 cap PO DAILY 06/11/17 07/30/17 1,000 mg Softgel] Potassium Gluconate 1 tab PO DAILY 06/11/17 07/30/17 Sertraline [Zoloft] 50 mg PO DAILY 06/11/17 07/30/17 Trazodone HCl 100 mg PO DAILY PRN 06/11/17 07/30/17 Valacyclovir HCl [Valacyclovir] 500 mg PO DAILY PRN 06/11/17 07/30/17 estradioL [Estradiol] 0.5 mg PO DAILY 06/11/17 07/30/17 Albuterol Sulf [Ventolin Hfa 1 - 2 puffs INH Q4HR PRN 07/26/17 07/30/17 Inhaler] Atomoxetine HCl [Strattera] 60 mg ORAL DAILY 01/16/22 01/16/22 Ciprofloxacin HCl [Cipro] 500 mg PO BID 7 Days #14 tablet 01/16/22 Magnesium Oxide 400 mg PO 01/16/22 Prochlorperazine Maleate 10 mg PO Q4HR PRN #20 tab 01/16/22 [Compazine] metroNIDAZOLE [Flagyl] 500 mg PO TID 7 Days #21 tablet 01/16/22 - Allergies Allergies/Adverse Reactions: Allergies Allergy/AdvReac Type Severity Reaction Status Date / Time cefazolin sodium * Allergy Anaphylaxis Verified 01/16/22 17:43 [From Ancef] latex Allergy Rash Verified 01/16/22 17:43 acetaminophen [From Percocet] AdvReac Nausea Verified 01/16/22 17:43 NSAIDS (Non-Steroidal AdvReac GI upset Verified 01/16/22 17:43 Anti-Inflamma Opioids-Meperidine and AdvReac Itching Verified 01/16/22 17:43 Related oxycodone [From Percocet] AdvReac Nausea Verified 01/16/22 17:43 - Social History Does the pt smoke?: No Smoking Status: Current some day smoker Does the pt drink ETOH?: Yes Does the pt have substance abuse?: No - Immunizations Immunizations are current?: Yes - POLST Patient has POLST: Yes PD ED PE NORMAL - Vitals Vital signs reviewed: Yes - General General: Alert and oriented X 3, No acute distress, Well developed/nourished - HEENT HEENT: Atraumatic, Moist mucous membranes, Pharynx benign - Neck Neck: Supple, no meningeal sign, No JVD - Cardiac Cardiac: RRR, No murmur, No gallop, No rub - Respiratory Respiratory: No respiratory distress, Clear bilaterally - Abdomen Abdomen: Normal bowel sounds, Soft, Non distended, Other (tender llq w/ guarding) - Back Back: No CVA TTP, No spinal TTP - Derm Derm: Normal color, Warm and dry, No rash - Extremities Extremities: No deformity - Neuro Neuro: Alert and oriented X 3 Eye Opening: Spontaneous Motor: Obeys Commands Verbal: Oriented GCS Score: 15 - Psych Psych: Normal mood, Normal affect Results - Vitals Vitals: Vital Signs - 24 hr 01/16/22 01/16/22 01/16/22 17:34 20:07 22:19 Temperature 37.2 C 37.1 C 37 C Heart Rate 105 H 90 88 Respiratory 16 16 16 Rate Blood Pressure 144/88 H 125/81 H 122/76 O2 Saturation 96 100 99 Oxygen O2 Source Room air - Labs Labs: Laboratory Tests 01/16/22 01/16/22 01/16/22 17:48 18:00 18:00 WBC 12.9 H RBC 4.04 L Hgb 13.3 Hct 39.1 MCV 96.8 MCH 32.9 H MCHC 34.0 RDW 12.3 Plt Count 257 MPV 9.3 Neut # (Auto) 9.4 H Lymph # (Auto) 1.7 [place] # (Auto) 1.3 H Eos # (Auto) 0.2 Baso # (Auto) 0.0 Absolute Nucleated RBC 0.00 Nucleated RBC % 0.0 Sodium 134 L Potassium 3.5 Chloride 94 L Carbon Dioxide 29 Anion Gap 11.0 BUN 13 Creatinine 1.0 Estimated GFR (MDRD) 56 L Glucose 104 H Calcium 9.4 Total Bilirubin 1.2 H AST 19 ALT 20 Alkaline Phosphatase 89 Total Protein 7.8 Albumin 4.2 Globulin 3.6 Albumin/Globulin Ratio 1.2 Lipase 27 Urine Color YELLOW Urine Clarity CLEAR Urine pH 6.0 Ur Specific [place] 1.025 Urine Protein NEGATIVE Urine Glucose (UA) NEGATIVE Urine Ketones 15 H Urine Occult Blood NEGATIVE Urine Nitrite NEGATIVE Urine Bilirubin NEGATIVE Urine Urobilinogen 0.2 (NORMAL) Ur Leukocyte Esterase NEGATIVE Ur Microscopic Review NOT INDICATED Urine Culture Comments NOT INDICATED PD MEDICAL DECISION MAKING - ED course Complexity details: reviewed results, re-evaluated patient, considered differential, d/w patient ED course: This is a very pleasant 61-year-old female who presented with left lower quadrant pain as per HPI. She is well-appearing on physical exam, afebrile with stable vital signs. Differentials considered included diverticulitis, constipation, small bowel obstruction, urinary tract infection, kidney stone, Among others. The patient was worked up with labs which are largely reassuring that showed a mildly elevated white blood cell count. Given her significant tenderness in the left lower quadrant on palpation, diverticulitis was highly suspected we did proceed with a CT scan given patient's history of a number of abdominal surgeries. CT does show diverticulitis. The patient is well- appearing and stable for discharge home with oral antibiotics. We will start her on Cipro and Flagyl as she has a cephalosporin allergy and she was given Compazine for nausea. She was advised to stick to a clear her for liquid diet over the course the next week and then advance as tolerated but recommended limiting meat, nuts and seeds and other foods that can be irritating to diverticulitis. She advised to return if she developed a fever, increasing abdominal pain vomiting or other concerns Departure - Departure Disposition: 01 Home, Self Care Clinical Impression: Diverticulitis Condition: Good Instructions: ED Diverticulitis Prescriptions: Prochlorperazine Maleate [Compazine] 10 mg PO Q4HR PRN #20 tab PRN Reason: Nausea / Vomiting Ciprofloxacin HCl [Cipro] 500 mg PO BID 7 Days #14 tablet metroNIDAZOLE [Flagyl] 500 mg PO TID 7 Days #21 tablet Comments: As we discussed, the CT showed diverticulitis. This often will resolve on its own without antibiotics however given the degree of your discomfort and other symptoms, I do recommend that we treat with a course of antibiotics. You are allergic to cephalosporins so we have given you 2 medications one is called ciprofloxacin and the other 1 is metronidazole and he should both be taken as prescribed for the next 7 days. Year abdominal pain can be managed with ibuprofen or Tylenol. I have given you 2 tablets of nausea medication as well. Please adhere to a soft and bland diet over the course of the next week or so. Do not eat any meat, not, high fat or high spice foods. If you develop increasing abdominal pain, fever, vomiting or other new concerns, return to the ER. Discharge Date/Time: 01/16/22 22:20
[2022-01-16] MEDS ORDERED: iohexoL-300 100 ML VIAL ONE (20:16)
[2022-01-16] MEDS ORDERED: iohexoL-300 100 ML VIAL IVP ONE (20:54)
--- NOTE | 2022-01-16 21:57 | CT Report ---
PROCEDURE: ABDOMEN/PELVIS W INDICATIONS: LLQ pain suspect diverticulitis CONTRAST: 100mL Omni 300 TECHNIQUE: After the administration of intravenous contrast, 5 mm thick sections acquired from the diaphragms to the symphysis. 5 mm thick coronal and sagittal reformats were acquired. For radiation dose reducti on, the following was used: automated exposure control, adjustment of mA and/or kV according to rakesh ent size. COMPARISON: None. FINDINGS: Image quality: Excellent. Lung bases:There is mild scarring in the lung bases. There are partially visualized breast implants. Heart: Heart is normal in size. A small hiatal hernia is present with associated surgical clips note d. ABDOMEN: Liver: No mass lesion. Gallbladder: Within normal limits without calcified gallstones. Biliary ducts: No biliary ductal dilatation. Pancreas: Unremarkable. Spleen: Normal in size. Adrenal Glands: No adrenal nodules. Kidneys and Ureters:There is mild right hydronephrosis with a transition at the ureteropelvic juncti on. The right ureter is nondistended. No left hydronephrosis. No renal or ureteral stones identified. Stomach and Bowel: Stomach and small bowel loops are normal in caliber and wall thickness. No perice blake inflammatory changes to suggest acute appendicitis. There is colonic diverticulosis with associat ed diverticular and segmental colonic wall thickening in the distal descending colon. There is associ ated pericolonic fat stranding and a small amount of free fluid. The findings are consistent with acu te diverticulitis. No evidence of diverticular abscess or macroscopic free air. Peritoneum: No abnormal intraperitoneal fluid. No free air. Ventral Wall: No hernia. Abdominal Nodes: No retroperitoneal or mesenteric adenopathy by size criteria. Vessels: Aorta and inferior vena cava are normal in size. PELVIS: Pelvic Organs: Unremarkable. Bladder: Unremarkable. Pelvic Nodes: No enlarged lymph nodes. Miscellaneous: No inguinal hernias are seen. Bones: Visualized osseous structures demonstrate no suspicious focal lesions. IMPRESSION: 1. Acute diverticulitis of the distal descending colon without evidence of diverticular abscess or ma croscopic free air. 2. Mild right hydronephrosis without an obstructing stone visualized. The findings are suggestive of a chronic UPJ obstruction. Reviewed by: Cosme Todd MD on 01/16/2022 9:55 PM PST Approved by: Cosme Todd MD on 01/16/2022 9:55 PM PST Station ID: [id number]
[2022-01-16] MEDS ORDERED: CIPROFLOXACIN 250 MG TABLET PO STA (22:00)
[2022-01-16] MEDS ORDERED: metroNIDAZOLE 250 MG TABLET PO STA (22:00)
[2022-01-16] MEDS ORDERED: ONDANSETRON ODT 4 MG Prepack 2 TL PRN (22:00)
[2022-01-16 22:20] VITALS: BP 122/76
== END 2022-01-16 22:20 | disposition home or self-care (01) ==
LOC: ED 17:31
DX: K57.32 Diverticulitis of large intestine without perforation or abscess without bleeding (principal); Z88.1 Allergy status to other antibiotic agents; R51.9 Headache, unspecified; R53.83 Other fatigue; I10 Essential (primary) hypertension; E11.9 Type 2 diabetes mellitus without complications; Z72.0 Tobacco use
CPT/HCPCS: 36415; 74177; 80053; 81003; 83690; 85025; 99284; A9270; Q9967; 81001; 87086

== ENCOUNTER 2022-05-17 15:39 | Outpatient (CLI) | payer MEDICAID ==
[2022-05-17 16:59] VITALS: BP 130/80
--- NOTE | 2022-05-17 16:59 | SLEEP CARE CONSULTATION ---
Information from patient questionnaire entered by Ghada Mares. I have reviewed and concur with the information entered by Ghada Mares. This document represents the service I personally performed and the decisions made by me, Susy Geronimo ARNP. History of Present Illness Service Date and Time: 05/17/2022 1539 Reason for Visit: New patient Chief Complaint: reports: Insomnia, Unrefreshed sleep, Snoring, Excessive daytime sleepiness, Observed pauses in breathing, Fatigue, Frequent awakenings at night Date of Onset: 8YRS OLD Usual bedtime: 830PM Time it takes to fall asleep: 30-45MIN Snores at night: Yes Observed to quit breathing while asleep: Yes Sleeps alone due to snoring: Yes Number of times waking at night: 5 Reasons for waking at night: reports: Snoring, Gasping for air, Bathroom, Other (NOISE, UNKNOWN). denies: Choking Toss, Turn, or Twitch while sleeping: Yes Recalls having dreams: No Usually gets out of bed at: 5AM Feels refreshed in the morning: No Morning headache: Yes (5 days a week) Sleepy or fatigued during the day: Yes Ever fallen asleep while driving: Yes (drowsy driving; no accidents) Takes day naps: No Dreams during day naps: No Prior sleep studies: No Additional HPI information: I had the pleasure of seeing KARLOS CHAVEZ today regarding the possibility of her having a sleep disorder. Her current complaints are excessive daytimes sleepiness, fatigue, frequent night awakenings, insomnia, observed pauses in breathing, snoring and unrefreshed sleep. She states she is always tired during the day. She has been told that she snores loudly and has had pauses in breathing. She had her tonsils and adenoids removed when she was 13 years old because of snoring and infections. She was told by a doctor that her adenoids have grown back. She wakes up several times a night. She states she cannot take naps, will not fall asleep if she lays down. - Parasomnia Symptoms Ever been unable to move upon waking from sleep: No Walks in sleep: Yes (will find food in her bed that she is eaten with some sleep medications) Talks in sleep: Yes (sometimes) Ever acted out dreams in sleep: Yes Ever felt weak in the knees when startled or emotional: Yes Bothered by creepy, crawly, restless sensations in legs: Yes Problems with memory or concentration: Yes (has a bad memory; has ADHD) Subjective Initial [place] Sleepiness Scale score: 14 (05/17/22) Past Medical History Past Medical History: reports: Hypertension, Dysphagia, Claustrophobia, Diabetes, Arthritis, Gout, Anxiety, Impotence (has no sex drive), Asthma, Depression, Mood disorder, GERD, Attention deficit, Other (tonsils/adenoid removed when 13 yrs old) Social History 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 Patient is Single and lives in [place]. Have you smoked in the past 12 months: No Years of smokin Quit date: 2017 Alcohol use: No Caffeine use: Yes Caffeine amount and frequency: 1 CUP IN AM Family History Family history of sleep disordered breathing: Yes Family Hx Sleep Apnea: Mother: Snoring, Sleep apnea - Treated, Sibling: Snoring, Sleep apnea - Treated Allergies and Home Medications Known drug allergies: Yes (as listed) Drug allergies reviewed: Yes Home medication list reviewed: Yes (updated list in EMR) Allergy and home medication list: Allergies cefazolin sodium * [From Ancef] Allergy (Verified 05/16/22 16:55) Anaphylaxis latex Allergy (Verified 05/16/22 16:55) Rash acetaminophen [From Percocet] Adverse Reaction (Verified 05/16/22 16:55) Nausea NSAIDS (Non-Steroidal Anti-Inflamma Adverse Reaction (Verified 05/16/22 16:55) GI upset Opioids-Meperidine and Related Adverse Reaction (Verified 05/16/22 16:55) Itching oxycodone [From Percocet] Adverse Reaction (Verified 05/16/22 16:55) Nausea Review of Systems Weight loss over past 5 years: 28 Cardiovascular: reports: high blood pressure, leg or foot swelling, have to sleep sitting up Respiratory: reports: shortness of breath, wheeze Gastrointestinal: reports: heartburn, difficulty swallowing, nausea Urinary: reports: incontinence, frequency, urgency Neurological: reports: gait or balance problems, fainting or unconsciousness Psychiatric: reports: Attention Deficit Hyperactivity, anxiety, depression, mood disorder, claustrophobia Ear/Nose/Throat: reports: nasal congestion, sinus problems, dry mouth/throat, injury to nose, tonsillectomy, wisdom teeth removed Endocrine: reports: sluggishness, too hot or cold, excessive thirst, increased appetite, increased urination, unexplained weakness Musculoskeletal: reports: joint pain, neck pain, back pain, joint swelling, muscle pain or cramping Immunologic: reports: sneezing, itching Physical Exam Vital signs obtained and entered by: GHADA Armendariz MA Blood Pressure: 130/80 (LEFT ARM) Cuff size: regular Heart Rate: 95 O2 Saturation: 97 Height: 5 ft 2 in Weight: 159 lb 6.4 oz Body Mass Index: 29.1 BMI Classification: Overweight Neck circumference: 14 Mouth and throat: narrow oropharynx Soft palate: normal Hard palate: normal Uvula: normal Uvula visualization: 100% Mallampati Class I Tongue: enlarged in size with teeth [place] on lateral edges Tonsils: absent bilaterally Neck: normal w/o lymphadenopathy or thyromegaly Heart: regular rate and rhythm Lungs: clear bilaterally Impression and Plan 1. Suspected Obstructive Sleep Apnea-Hypopnea Syndrome, as suggested by a history of loud and irregular snoring, observed cessation of breath while asleep, gasping or choking in sleep, morning headache, frequent awakening during the night, unrefreshed sleep, cognitive impairment, and excessive daytime sleepiness. Narrow oropharynx and obesity are common predisposing factors for obstructive sleep apnea-hypopnea syndrome. I recommend proceeding to polysomnography to confirm the diagnosis and to assess severity. If the patient has significant sleep disordered breathing, a manual CPAP titration study will also be performed to find the optimal treatment pressure. I informed the patient of what the sleep studies involve and after some discussion, obtained agreement to proceed. The pathophysiology of obstructive sleep apnea-hypopnea syndrome was discussed with the patient and health risks of cardiovascular and cerebrovascular disease if not treated. Risks of drowsy driving discussed in detail and patient advised to avoid long distance driving and to clod puller at the first sign of drowsiness. Patient agreed to plan. * Schedule polysomnography * Avoid long distance driving or driving when feeling sleepy. * Avoid alcohol, sedative and muscle relaxant around bedtime. * Attempt to lose weight. * Review instructions provided by trained office staff on how to prepare for the sleep study. * Return for follow-up after sleep study completed. Counseling Topics: Weight loss health impact Visit Type: In Office Time Spent with Patient (minutes): 36 Provider Statement: I spent 100% of the Face to Face Visit with the patient with greater than 50% spent counseling the patient and coordination of care.
== END 2022-05-17 15:40 | disposition home or self-care (01) ==
LOC: SC 15:39
PROVIDERS: ATTEND Nurse Practitioner Family
DX: G47.10 Hypersomnia, unspecified (principal); G47.8 Other sleep disorders; R51.9 Headache, unspecified; R06.83 Snoring; R06.81 Apnea, not elsewhere classified; F32.A Depression, unspecified; E11.9 Type 2 diabetes mellitus without complications; I10 Essential (primary) hypertension; E66.3 Overweight; Z68.29 Body mass index [BMI] 29.0-29.9, adult; Z87.891 Personal history of nicotine dependence
CPT/HCPCS: 99203; 99212

== ENCOUNTER 2022-07-06 14:30 | Outpatient (CLI) | payer MEDICAID | END 2022-07-06 14:31 | disposition home or self-care (01) | LOC: SC 14:30 | PROVIDERS: ATTEND Nurse Practitioner Family | DX: G47.33 Obstructive sleep apnea (adult) (pediatric) (principal); R09.02 Hypoxemia | CPT/HCPCS: 95806 ==

== ENCOUNTER → 2022-07-13 | Outpatient (CLI) | payer MEDICAID ==
--- NOTE | 2022-07-13 16:34 | Sleep Patient Instructions ---
Sleep Center Visit Summary - Patient Visit Information Reason for Visit: Sleep study followup - Patient Instructions Instructions Attached: CPAP, CPAP Dc Additional Instructions: You are being started on CPAP therapy with pressure setting at 4-15 cmH2O. You will need to call the sleep care office to set up your follow up once you have your APAP machine and we will schedule a visit to check compliance and response to therapy at that time. You may call the office with any concerns about pressure feeling too low or too much for adjustment, if needed. You should contact DME for any questions or concerns about mask or equipment. Please follow up in the sleep care office one month after obtaining new CPAP. - Clinic Information Contact: [facility] [address] [place] [address] [email or web address] T: [phone]
--- NOTE | 2022-07-13 16:38 | SLEEP CARE CONSULTATION ---
Information from patient questionnaire entered by Rosenana Mares. I have reviewed and concur with the information entered by Roseanna Mares. This document represents the service I personally performed and the decisions made by , Susy Geronimo ARNP. History of Present Illness Service Date and Time: 07/13/2022 1553 Initial [place] Sleepiness Scale score: 14 (05/17/22) Current [place] Sleepiness Scale score: 19 (07/13/22) Additional HPI information: KARLOS CHAVEZ returns for follow up and results of the recently performed home sleep study. I explained the pathophysiology behind obstructive sleep apnea. We then spent quite a bit of time discussing different treatment options. For mild obstructive sleep apnea, surgery and oral appliance are alternatives to nasal CPAP therapy but in moderate or severe cases, nasal CPAP is the most effective and reliable treatment. Because apnea is primarily in supine position, then positional management therapy could be effective. I reviewed the impact of weight changes on sleep apnea and strongly recommended losing weight. After some discussion, the patient opted to go with the nasal CPAP therapy. Nasal autoCPAP set at 4-15 cmH20 will be ordered with rationale explained. A manual titration study will be ordered if unable to find optimal pressure with office adjustments. I explained how CPAP machine works and what to expect when using the machine. Using CPAP every night in order to get used to it was emphasized. Patient advised to put CPAP mask on before getting into bed so as not to fall asleep without CPAP. To assist acclimation to CPAP use, it could also be used for a s hort time during day while reading or watching TV. The patient was instructed to call the CPAP supplier to discuss any mechanical problem that may occur. If the mask given is uncomfortable or is difficult to keep on through the night even with adjustment, contact the CPAP supplier as many will replace with another mask style if notified before 30 days. If snoring or perceives is not getting enough air or too much air from the machine, notify this office. Patient was cautioned about risks of drowsy driving until sleepiness symptoms resolve. Sleep Study - Results Type of Sleep Study: Home sleep study (COMPLETED 07/06/22) Prior sleep studies: No Polysomnography/Home Sleep Study results: Physician Impression: The quality of the study is good. The length of the study is adequate (> 240 minutes). Please also see the tabulated and graphic data. 1. Obstructive Sleep Apnea-Hypopnea (ICD-10 G47.33), mild, with an AHI of 5.4/hr and yulisa SaO2 of 86%. During the study, the patient had 9 apneas (9 obstructive, 0 central, 0 mi xed) and 32 hypopneas. The longest episode lasted 84.5 seconds. The respiratory events occurred almost exclusively during supine sleep (supine AHI was 8.8 and non-supine, 3.77). 2. Hypoxemia (ICD-10 R09.02), mild, with the lowest oxygen saturation of 86 % and 45.8 minutes with SaO2 under 90%. Baseline oxygen saturation was normal (Average oxygen saturation was 94%). Allergies and Home Medications Known drug allergies: Yes (as listed) Drug allergies reviewed: Yes Home medication list reviewed: Yes (no changes) Allergy and home medication list: Allergies cefazolin sodium * [From Ancef] Allergy (Verified 05/17/22 16:07) Anaphylaxis latex Allergy (Verified 05/17/22 16:07) Rash acetaminophen [From Percocet] Adverse Reaction (Verified 05/17/22 16:07) Nausea NSAIDS (Non-Steroidal Anti-Inflamma Adverse Reaction (Verified 05/17/22 16:07) GI upset Opioids-Meperidine and Related Adverse Reaction (Verified 05/17/22 16:07) Itching oxycodone [From Percocet] Adverse Reaction (Verified 05/17/22 16:07) Nausea Review of Systems Review of systems same as previous: Yes (no changes) Physical Exam Vital signs obtained and entered by: ROSEANNA Armendariz MA Blood Pressure: 128/74 (LEFT ARM) Cuff size: regular Heart Rate: 103 O2 Saturation: 98 Height: 5 ft 2 in Weight: 162 lb 12.8 oz Body Mass Index: 29.7 BMI Classification: Overweight Impression and Plan 1. Obstructive Sleep Apnea-Hypopnea Syndrome, mild, with lowest oxygen saturation of 86%. Obviously this is the cause of the patients symptoms of unrefreshed sleep, and excessive daytime sleepiness. Positive pressure therapy could benefit hypertension, diabetes, anxiety, depression, asthma, gastric reflux, mood disorder and attention deficit. As mentioned above, the patient will be started on nasal autoCPAP therapy with pressure set at 4-15 cmH2O. A manual titration study will be completed if unable to find optimal treatment pressure with office adjustments. Compliance guidelines also reviewed. A copy of compliance guidelines will be given for reference at check out. Because the apnea is more severe supine, I instructed to avoid sleeping supine using pillow positioning until able to start CPAP use. 2. Hypoxemia, mild, with a yulisa oxygen saturation of 86% and 45.8 minutes spent under 90%. Her baseline oxygen saturation was normal with an average oxygen satu ration of 94%. * Nasal auto CPAP therapy, pressure at 4-15 cm H2O. * Attempt to lose weight. * Avoid alcohol consumption near bedtime. * Avoid supine sleep until using CPAP. * The patient is again cautioned about driving until sleepiness completely resolves. * Return one month after CPAP obtained. I will assess response to therapy and compliance at that time. Counseling Topics: Weight loss health impact Visit Type: In Office Time Spent with Patient (minutes): 29 Provider Statement: I spent 100% of the Face to Face Visit with the patient with greater than 50% spent counseling the patient and coordination of care.
[2022-07-13 16:39] VITALS: BP 128/74
== END ==
LOC: SC 15:53
PROVIDERS: ATTEND Nurse Practitioner Family
DX: G47.33 Obstructive sleep apnea (adult) (pediatric) (principal); R09.02 Hypoxemia; E66.3 Overweight; Z68.29 Body mass index [BMI] 29.0-29.9, adult
CPT/HCPCS: 99212; 99213

== ENCOUNTER 2022-08-24 11:09 | Outpatient (CLI) | payer MEDICAID ==
[2022-08-24 17:58] LABS: BASOPHILS % (AUTO) 0.5 %; EOSINOPHILS # (AUTO) 0.2 10^3/uL (0.0-0.7); EOSINOPHILS % (AUTO) 3.5 %; HCT - HEMATOCRIT 43.2 % (37.0-47.0); HGB - HEMOGLOBIN 14.5 g/dL (12.0-16.0); LYMPHOCYTES # (AUTO) 1.5 10^3/uL (1.5-3.5); LYMPHOCYTES % (AUTO) 25.7 %; MEAN CORPUSCULAR HGB CONC 33.6 g/dL (32.0-36.0); MEAN CORPUSCULAR VOLUME 95.4 fL (81.0-99.0); MEAN PLATELET VOLUME 10.4 fL (7.9-10.8); MONOCYTES # (AUTO) 0.6 10^3/uL (0.0-1.0); MONOCYTES % (AUTO) 10.8 %; NEUTROPHILS # (AUTO) 3.5 10^3/uL (1.5-6.6); PLT - PLATELET COUNT 320 10^3/uL (130-450); RED BLOOD COUNT 4.53 10^6/uL (4.20-5.40); RED CELL DISTRIBUTION WIDTH 12.4 % (12.0-15.0); WHITE BLOOD COUNT 5.9 x10^3/uL (4.8-10.8)
[2022-08-24 18:26] LABS: ALBUMIN/GLOBULIN RATIO 1.2 (1.0-2.2); ALKALINE PHOSPHATASE 68 IU/L (42-121); ALT ALANINE AMINOTRANSFERASE 29 IU/L (10-60); AST ASPARTATE AMINOTRANSFERASE 25 IU/L (10-42); BILIRUBIN,TOTAL 0.5 mg/dL (0.2-1.0); BUN - BLOOD UREA NITROGEN 11 mg/dL (6-20); CALCIUM 9.2 mg/dL (8.5-10.3); CARBON DIOXIDE - CO2 29 mmol/L (21-32); CHLORIDE 97 mmol/L (101-111); CHOL/HDL RATIO 3.8 (<4.4); CHOLESTEROL 252 mg/dL; GFR - MDRD 56 (>89); GLUCOSE 98 mg/dL (70-100); HDL CHOLESTEROL 67 mg/dL; LDL CHOLESTEROL,CALCULATED 165 mg/dL; LDL/HDL RATIO 2.5 (<4.4); POTASSIUM 3.6 mmol/L (3.5-5.0); SODIUM 135 mmol/L (135-145); TOTAL PROTEIN 7.3 g/dL (6.7-8.2); TRIGLYCERIDES 101 mg/dL; VLDL CHOLESTEROL 20 mg/dL
[2022-08-24 18:33] LABS: THYROID STIMULATING HORMONE 1.92 uIU/mL (0.34-5.60)
[2022-08-24 18:39] LABS: FERRITIN 77.5 ng/mL (11.0-306.8)
[2022-08-24 18:44] LABS: FOLATE 7.79 ng/mL (5.90 - >24.8)
[2022-08-24 20:39] LABS: ESTIMATED AVERAGE GLUCOSE 108 mg/dL (70-100); HEMOGLOBIN A1c% 5.4 % (4.27-6.07)
== END 2022-08-24 11:10 | disposition home or self-care (01) ==
LOC: LAB.N 11:09
PROVIDERS: ATTEND Physician Assistant Medical
DX: Z00.00 Encounter for general adult medical examination without abnormal findings (principal); R53.83 Other fatigue; E11.9 Type 2 diabetes mellitus without complications
CPT/HCPCS: 36415; 80053; 80061; 82306; 82607; 82728; 82746; 82747; 83036; 83721; 84443; 85014; 85025

== ENCOUNTER 2022-09-20 16:11 | Outpatient (CLI) | payer MEDICAID ==
--- NOTE | 2022-09-20 16:45 | Sleep Patient Instructions ---
Sleep Center Visit Summary - Patient Visit Information Reason for Visit: First compliance visit with PAP therapy - Patient Instructions Additional Instructions: You were here for follow up of CPAP therapy. You will be continued on CPAP therapy with pressure at 8-10 cmH2O. Please let us know if the pressure change is uncomfortable and we can make further adjustments of the pressure. You should follow up with sleep care in 1-2 months. You may contact us sooner for any questions or concerns. 09-27 - Clinic Information Contact: [facility] [address] [place] [address] [email or web address] T: [phone]
--- NOTE | 2022-09-20 16:55 | SLEEP CARE CONSULTATION ---
Information from patient questionnaire entered by Ghada Mares. I have reviewed and concur with the information entered by Ghada Mares. This document represents the service I personally performed and the decisions made by , Susy Geronimo ARNP. History of Present Illness Service Date and Time: 09/20/2022 1611 Previous diagnosis: Mild, Obstructive Sleep Apnea-Hypopnea Syndrome AHI: 5.4 (in 2022) Reason for follow up: first compliance Equipment type: CPAP (RESMED 11, 07/2022) Equipment obtained from: Other ([facility]; got initial supplies) Mask style: Nasal Mask brand: 3B Siesta Backup mask available: No (will keep old mask when replaced) Last cushion change: 1 month Prior sleep studies: No Type of Sleep Study: Home sleep study (COMPLETED 07/06/22) HPI additional information: KARLOS CHAVEZ was diagnosed to have mild, AHI 5.4, obstructive sleep apnea- hypopnea syndrome and returned today for CPAP therapy first compliance follow- up. Sleep Study - Results Type of Sleep Study: Home sleep study (COMPLETED 07/06/22) Prior sleep studies: No CPAP Compliance Data - Data Reviewed with Patient Average duration of nightly device use: 5 HRS 56 MIN Compliance rate %: 87 (08/08/22-09/06/22; days used) Current pressure setting (cmH2O): 4-15 (median 5.4, avg 8.6, max 9.9) Average residual AHI: 0.6 Central apnea: 0.1 Obstructive apnea: 0.1 Hypopnea: 0.2 Average large leak: 2.7 L/min Subjective Missed days of use due to: reports: illness Patient concerns: reports: air blowing in eyes, mask leak noise, dry mouth, nose, throat. denies: aerophagia, mask discomfort, condensation in mask/hose, nasal congestion, epistaxis Observed to snore while using device: No Current pressure setting perceived as: comfortable On therapy, patient: reports: sleeping better, awakening more refreshed, being more awake and alert during the day, more rested overall. denies: drowsiness while driving Initial [place] Sleepiness Scale score: 14 (05/17/22) Current [place] Sleepiness Scale score: 11 (09/20/22) Allergies and Home Medications Known drug allergies: Yes (as listed) Drug allergies reviewed: Yes Home medication list reviewed: Yes (no changes) Allergy and home medication list: Allergies cefazolin sodium * [From Ancef] Allergy (Verified 09/20/22 09:19) Anaphylaxis latex Allergy (Verified 09/20/22 09:19) Rash acetaminophen [From Percocet] Adverse Reaction (Verified 09/20/22 09:19) Nausea NSAIDS (Non-Steroidal Anti-Inflamma Adverse Reaction (Verified 09/20/22 09:19) GI upset Opioids-Meperidine and Related Adverse Reaction (Verified 09/20/22 09:19) Itching oxycodone [From Percocet] Adverse Reaction (Verified 09/20/22 09:19) Nausea Review of Systems Review of systems same as previous: Yes (no changes) Physical Exam Vital signs obtained and entered by: GHADA Armendariz MA Blood Pressure: 126/72 (LEFT ARM) Cuff size: regular Heart Rate: 88 O2 Saturation: 97 Height: 5 ft 2 in Weight: 158 lb Body Mass Index: 28.9 BMI Classification: Overweight Impression and Plan 1. Obstructive Sleep Apnea-Hypopnea Syndrome, mild, with good treatment compliance and good apnea control. On CPAP therapy, the patient has better sleep quality and is more rested overall. Patient got sick and was unable to use her CPAP because of the nasal congestion. When she started using her machine again, she noticed how much more improvement she notice with reduction of her daytime sleepiness and increased energy level. The patients pressure will be changed to autoCPAP 8-10 cmH20 to reflect pressures being used. Patient advised to contact me if pressure change is uncomfortable so that it can be adjusted. Goals for apnea control discussed. Patient has been using 3B Siesta nasal mask. She states it is hard to get on and off at night and she will sometimes put it on upside down. I fitted her with a TrendzoWear nasal pillows mask with a small cushion and gave her a medium nasal cushion to try in the same headgear. She will try these out and see if she likes this set up better for her mask. I will follow-up with her in 1 to 2 months. Patient's apnea severity and rationale for treatment to reduce apnea, improve sleep quality and reduce cardiovascular and cerebrovascular events was reviewed. I also reviewed the benefit of consistent device use of CPAP for hypertension, diabetes, gastric reflux, depression, anxiety, mood disorder, asthma and attention deficit. 2. Overweight, unspecified. Currently patients BMI is 28.9. Obesity increases the risk of apnea, CPAP pressure requirements and overall health risks especially cardiovascular and diabetes. Thus patient is advised to continue to try to lose weight. * Change auto CPAP pressure to 8-10 cmH2O * Fitted to Dreamwear nasal pillows mask, small cushion and medium nasal cushion to try at home, supplies sent with patient * Notify me if snoring with mask or feeling that the pressure is too much or too little * Attempt to lose weight * Call this office if any problems using CPAP * Return for follow up in 1-2 months, or sooner if concerns arise Counseling Topics: Spare mask, Weight loss health impact Visit Type: In Office Time Spent with Patient (minutes): 24 Provider Statement: I spent 100% of the Face to Face Visit with the patient with greater than 50% spent counseling the patient and coordination of care.
[2022-09-20 16:59] VITALS: BP 126/72
== END 2022-09-20 16:12 | disposition home or self-care (01) ==
LOC: SC 16:11
PROVIDERS: ATTEND Nurse Practitioner Family
DX: G47.33 Obstructive sleep apnea (adult) (pediatric) (principal); E66.3 Overweight; Z68.28 Body mass index [BMI] 28.0-28.9, adult
CPT/HCPCS: 99212; 99213

== ENCOUNTER 2023-05-29 18:13 | Outpatient (CLI) | payer SELFPAY | END 2023-05-29 23:59 | disposition EMS.NT | LOC: EMS 18:13 | DX: R20.0 Anesthesia of skin (principal); R11.0 Nausea; R42 Dizziness and giddiness ==

== ENCOUNTER 2023-09-23 08:59 | Outpatient (CLI) | payer OTHER ==
[2023-09-23 12:55] LABS: BASOPHILS # (AUTO) 0.1 10^3/uL (0.0-0.1); BASOPHILS % (AUTO) 0.7 %; EOSINOPHILS # (AUTO) 0.2 10^3/uL (0.0-0.7); EOSINOPHILS % (AUTO) 2.7 %; HCT - HEMATOCRIT 44.9 % (37.0-47.0); HGB - HEMOGLOBIN 14.9 g/dL (12.0-16.0); LYMPHOCYTES # (AUTO) 2.1 10^3/uL (1.5-3.5); LYMPHOCYTES % (AUTO) 30.7 %; MEAN CORPUSCULAR HEMOGLOBIN 32.1 pg (27.0-31.0); MEAN CORPUSCULAR HGB CONC 33.2 g/dL (32.0-36.0); MEAN CORPUSCULAR VOLUME 96.8 fL (81.0-99.0); MEAN PLATELET VOLUME 11.3 fL (7.9-10.8); MONOCYTES # (AUTO) 0.6 10^3/uL (0.0-1.0); MONOCYTES % (AUTO) 8.6 %; NEUTROPHILS # (AUTO) 3.8 10^3/uL (1.5-6.6); PLT - PLATELET COUNT 311 10^3/uL (130-450); RED BLOOD COUNT 4.64 10^6/uL (4.20-5.40); RED CELL DISTRIBUTION WIDTH 12.1 % (12.0-15.0); WHITE BLOOD COUNT 6.7 x10^3/uL (4.8-10.8)
[2023-09-23 13:50] LABS: ALBUMIN 4.4 g/dL (3.2-5.5); ALBUMIN/GLOBULIN RATIO 1.9 (1.0-2.2); ALKALINE PHOSPHATASE 80 IU/L (42-121); ALT ALANINE AMINOTRANSFERASE 16 IU/L (10-60); AST ASPARTATE AMINOTRANSFERASE 21 IU/L (10-42); BILIRUBIN,TOTAL 0.7 mg/dL (0.2-1.0); BUN - BLOOD UREA NITROGEN 17 mg/dL (6-20); CALCIUM 9.8 mg/dL (8.5-10.3); CARBON DIOXIDE - CO2 30 mmol/L (21-32); CHLORIDE 105 mmol/L (101-111); CHOL/HDL RATIO 2.9 (<4.4); CHOLESTEROL 214 mg/dL; CREATININE 1.1 mg/dL (0.6-1.3); GFR - MDRD 50 (>89); GLUCOSE 100 mg/dL (74-104); HDL CHOLESTEROL 73 mg/dL; LDL CHOLESTEROL,CALCULATED 116 mg/dL; LDL/HDL RATIO 1.6 (<4.4); POTASSIUM 4.3 mmol/L (3.5-4.5); SODIUM 140 mmol/L (135-145); TOTAL PROTEIN 6.7 g/dL (6.4-8.9); TRIGLYCERIDES 125 mg/dL; VLDL CHOLESTEROL 25 mg/dL
[2023-09-23 13:55] LABS: BILIRUBIN,URINE NEGATIVE (NEGATIVE); GLUCOSE, URINE (UA) NEGATIVE (NEGATIVE); KETONES,URINE (UA) NEGATIVE (NEGATIVE); LEUKOCYTE ESTERASE, URINE NEGATIVE (NEGATIVE); NITRITE,URINE NEGATIVE (NEGATIVE); OCCULT BLOOD,URINE NEGATIVE (NEGATIVE); PROTEIN,URINE NEGATIVE (NEGATIVE); UROBILINOGEN,URINE 0.2 (NORMAL) E.U./dL (NORMAL)
[2023-09-23 13:56] LABS: CLARITY,URINE CLEAR (CLEAR)
[2023-09-23 14:36] LABS: THYROID STIMULATING HORMONE 1.96 uIU/mL (0.34-5.60)
[2023-09-23 21:04] LABS: ESTIMATED AVERAGE GLUCOSE 103 mg/dL (70-100); HEMOGLOBIN A1c% 5.2 % (4.27-6.07)
== END 2023-09-23 09:00 | disposition home or self-care (01) ==
LOC: LAB.N 08:59
PROVIDERS: ATTEND Physician Assistant Medical
DX: Z00.00 Encounter for general adult medical examination without abnormal findings (principal); E11.9 Type 2 diabetes mellitus without complications; R82.79 Other abnormal findings on microbiological examination of urine; Z77.011 Contact with and (suspected) exposure to lead
CPT/HCPCS: 36415; 80053; 80061; 81001; 81003; 83036; 83655; 83721; 84443; 85025; 87086

== ENCOUNTER 2023-09-23 10:25 | Outpatient (CLI) | payer OTHER ==
--- NOTE | 2023-09-24 07:46 | Mammography Report ---
BILATERAL DIGITAL SCREENING MAMMOGRAM 3D/2D WITH AUGMENTATION: 09/23/2023 CLINICAL: Routine screening. Comparison is made to exams dated: 10/02/2021 mammogram, 05/03/2020 mammogram, 11/23/2019 mammogram, an d 05/09/2017 mammogram - [facility]. There are scattered areas of fibroglandular density in both breasts (category b / 25%-50% glandular t issue). Bilateral breast implants are intact. No significant masses, calcifications, or other findings are seen in either breast. There has been no significant interval change. IMPRESSION: NEGATIVE There is no mammographic evidence of malignancy. A 1 year screening mammogram is recommended. Based on the Tyrer Cuzick model (a risk assessment model) the patient's lifetime risk is 5.7% and her 10 year risk is 2.6%. According to the ACR, ACS, and NCCN guidelines, an annual breast MRI exam tony g with mammogram is recommended if the patient's lifetime risk is 20% or greater. This exam was interpreted at Station ID: [id number]. NOTE: For mammograms, a report in lay terms will be sent to the patient. Approximately 15% of breast malignancies will not be visualized mammographically. In the management of a palpable breast mass, a negative mammogram must not discourage biopsy of a clinically suspicious lesion. Electronically Signed By: Aakash navarro/anaya:09/23/2023 15:21:06 letter sent: No_Letter ACR BI-RADS Category 1: Negative 3341F PARENCHYMAL PATTERN: (A) - The breast(s) demonstrate(s) scattered fibroglandular densities. BI-RADS CATEGORY: (1) - 1 RECOMMENDATION: (ANNUAL) - Recommend routine annual screening mammography. [id number] 1 year screening LATERALITY: (B)
== END 2023-09-23 10:26 | disposition home or self-care (01) ==
LOC: DI 10:25
DX: Z12.31 Encounter for screening mammogram for malignant neoplasm of breast (principal); R92.323 Mammographic fibroglandular density, bilateral breasts; Z98.82 Breast implant status; Z00.00 Encounter for general adult medical examination without abnormal findings; E11.9 Type 2 diabetes mellitus without complications; R82.79 Other abnormal findings on microbiological examination of urine; Z77.011 Contact with and (suspected) exposure to lead
CPT/HCPCS: 36415; 80053; 80061; 81001; 81003; 83036; 83655; 83721; 84443; 85025; 87086

== ENCOUNTER 2023-11-11 15:33 | Outpatient (CLI) | payer OTHER ==
--- NOTE | 2023-11-11 19:34 | DEXA Report ---
PROCEDURE: Dexa Spine and/or Hip INDICATIONS: POST MENOPAUSAL TECHNIQUE: Dual energy x-ray absorptiometry (DXA) was performed on a 12 Star Survival System. Regions measur ed are the AP Spine, femoral neck, and if needed forearm. COMPARISON: None FINDINGS: Lumbar Spine: Bone Mineral Density: 1.433 g/cm/cm,T score: 2.1. Left Femoral Neck: Bone Mineral Density: 0.988 g/cm/cm, T score: -0.4. Left Hip: Bone Mineral Density: 0.956 g/cm/cm,T score: -0.4. FRAX risk factors: None given. (T score greater or equal to -1.0: NORMAL) (T score from -1.1 to -2.4: OSTEOPENIA) (T score less than or equal to -2.5 to: OSTEOPOROSIS) Impression: By WHO criteria, this patient has normal bone density. Patients with diagnosis of osteoporosis or osteopenia should have regular bone mineral density assess ment. For those eligible for Medicare, routine testing is allowed once every 2 years. Testing frequ ency can be increased for patients who have rapidly progressing disease or for those who are receivin g medical therapy to restore bone mass. Reviewed by: Vick Mcdonough MD on 11/11/2023 7:32 PM PDT Approved by: Vick Mcdonough MD on 11/11/2023 7:32 PM PDT Station ID: [id number]
== END 2023-11-11 15:34 | disposition home or self-care (01) ==
LOC: DI 15:33
PROVIDERS: ATTEND Physician Assistant Medical
DX: Z78.0 Asymptomatic menopausal state (principal)